=== PATIENT | female | born 2000 | race Caucasian/White ===

== ENCOUNTER 2022-02-11 21:47 | Emergency (ER) | payer BC ==
[2022-02-12] MEDS ORDERED: Dexamethasone 10 MG/ML VIAL ONE (00:09)
[2022-02-12] MEDS ORDERED: Ketorolac Tromethamine 10 MG TAB PO SCH (00:15)
[2022-02-12] MEDS ORDERED: Dexamethasone 4 mg/ml Vial ONE (00:17)
== END 2022-02-12 02:49 | disposition home or self-care (01) ==
LOC: CSHERS 21:47
DX: R07.89 Other chest pain (principal); K21.9 Gastro-esophageal reflux disease without esophagitis
CPT/HCPCS: 71045; 93005; J1100